=== PATIENT | male | born 1940 | race African-American/Black ===

== ENCOUNTER 2021-04-19 04:23 | Inpatient (IN) | payer OTHER ==
[~2021-04-19] VITALS: Ht 172.7 cm; Wt 87.5 kg
[2021-04-19] MEDS ORDERED: NITROGLYCERIN OINT 1GM/INCH UDPKT TD ONE (04:45)
[2021-04-19] MEDS ORDERED: FUROSEMIDE 40MG/4ML VIAL IV ONE (04:45)
[2021-04-19 05:27] LABS: BASOPHILS % 0.7 % (0.0-2.0); EOSINOPHILS % 1.3 % (0.0-5.0); HEMOGLOBIN. 10.1 g/dL (14.0-18.0); LYMPHOCYTES % 9.4 % (20.0-50.0); MEAN CORPUSCULAR VOLUME 92.3 fL (80.0-94.0); MEAN PLATELET VOLUME 8.6 fl (7.4-10.4); MONOCYTES % 7.8 % (2.0-8.0); NEUTROPHILS % 80.8 % (40.0-76.0); PLATELET 161 x1000/uL (130-400); RED BLOOD CELL COUNT 3.35 mill/uL (4.7-6.1); RED CELL DISTRIBUTION WIDTH 15.7 % (11.6-14.6)
[2021-04-19 05:34] LABS: CHLORIDE 117 mEq/L (98-107)
[2021-04-19] MEDS ORDERED: LORAZEPAM 2MG/ML CPJ IV PRN (08:00)
[2021-04-19] MEDS ORDERED: GUAIFENESIN 200MG/10ML SUGAR FREE UDC PO PRN (08:00)
[2021-04-19] MEDS ORDERED: ONDANSETRON HCL 4MG/2ML INJ IV PRN (08:00)
[2021-04-19] MEDS ORDERED: MORPHINE SULFATE 2 MG/ML CPJ (NOT FOR IM USE) IV PRN (08:00)
[2021-04-19] MEDS ORDERED: ALBUTEROL 6.7GM HFA INHALER ORI PRN (08:00)
[2021-04-19] MEDS ORDERED: DIPHENHYDRAMINE 50MG/ML VIAL IV PRN (08:00)
[2021-04-19] MEDS ORDERED: CLONIDINE 0.1MG TABLET PO PRN (08:00)
[2021-04-19] MEDS ORDERED: CEFTRIAXONE 1 G PREMIX 50 ML IV SCH (08:00)
[2021-04-19] MEDS ORDERED: MAGNESIUM/ALUMINUM HYDROXIDE/SIMETHICONE 30ML UDC PO PRN (08:00)
[2021-04-19] MEDS ORDERED: ENOXAPARIN 40MG/0.4ML SYR SUBCUT SCH (08:00)
[2021-04-19] MEDS ORDERED: DOCUSATE SODIUM 100MG CAPSULE PO PRN (08:00)
[2021-04-19] MEDS ORDERED: HYDROCODONE/ACETAMINOPHEN 5/325MG TABLET PO PRN (08:00)
[2021-04-19] MEDS ORDERED: ACETAMINOPHEN 325MG TABLET PO PRN (08:00)
[2021-04-19] MEDS ORDERED: AZITHROMYCIN 500 MG in DEXT 5% WATER 250 ML IV SCH (09:00)
[2021-04-19] MEDS: FUROSEMIDE 40MG/4ML VIAL IVP SCH (12:02)
[2021-04-19 12:09] LABS: CREATINE KINASE 125 IU/L (39-308)
[2021-04-19] MEDS ORDERED: ASPIRIN 81MG EC TABLET PO NR (13:45)
[2021-04-19 13:48] LABS: BG CARBOXYHEMOGLOBIN 0.3 % (0.5-1.5); BG DEOXYHEMOGLOBIN 3.2 % (0.0-5.0); BG HCO3 ACT 21.2 mmol/L (22.0-26.0); BG METHEMOGLOBIN 0.3 % (0.0-1.5); BG OXYGEN SATURATION 96.8 % (92.0-98.5); BG OXYHEMOGLOBIN 96.2 % (94.0-97.0); BG PCO2 35.1 mmHg (35.0-45.0); BG PH 7.399 (7.350-7.450); BG PO2 94.4 mmHg (75.0-100.0); BG SAMPLE SITE RIGHT BRACHIAL; BG TOTAL HEMOGLOBIN 11.3 g/dL (12.0-18.0); BG VENT MODE NASAL CANNULA
[2021-04-19] MEDS: SODIUM CHLORIDE 0.9% INJ 3ML FLUSH IVF SCH ×2 (14:00→15:21)
[2021-04-19 21:00] VITALS: BP 121/61
[2021-04-19] MEDS: CARVEDILOL 6.25 MG TABLET PO SCH (22:02)
[2021-04-19] MEDS: ATORVASTATIN CALCIUM 40MG TABLET PO SCH (22:02)
[2021-04-20] VITALS: BP 133/71
[2021-04-20] MEDS ORDERED: ISOS30TA91 PO (01:28)
[2021-04-20] MEDS ORDERED: CARV12.545 MT (01:28)
[2021-04-20] MEDS ORDERED: PANT40TA51 MT (01:28)
[2021-04-20] MEDS ORDERED: ATOR-2 MT (01:28)
[2021-04-20] MEDS ORDERED: COLC0.6C3 MT (01:28)
[2021-04-20 04:00] VITALS: BP 163/70
[2021-04-20] MEDS: SODIUM CHLORIDE 0.9% INJ 3ML FLUSH IVF SCH ×3 (06:13→20:42)
[2021-04-20 07:14] LABS: CHLORIDE 115 mEq/L (98-107)
[2021-04-20 07:19] LABS: BASOPHILS % 0.9 % (0.0-2.0); EOSINOPHILS % 2.7 % (0.0-5.0); HEMATOCRIT. 28.6 % (42.0-52.0); HEMOGLOBIN. 9.7 g/dL (14.0-18.0); LYMPHOCYTES % 14.8 % (20.0-50.0); MEAN CORPUSCULAR HEMOGLOBIN 30.6 pg (28.0-32.0); MEAN CORPUSCULAR VOLUME 90.1 fL (80.0-94.0); MEAN PLATELET VOLUME 8.8 fl (7.4-10.4); NEUTROPHILS % 69.6 % (40.0-76.0); PLATELET 146 x1000/uL (130-400); RED BLOOD CELL COUNT 3.17 mill/uL (4.7-6.1); RED CELL DISTRIBUTION WIDTH 15.5 % (11.6-14.6)
[2021-04-20 08:12] VITALS: BP 158/64
[2021-04-20] MEDS: CEFTRIAXONE 1,000 MG in DEXTROSE 5% WATER 50 ML IV SCH (08:23)
[2021-04-20] MEDS: ASPIRIN 81MG EC TABLET PO SCH (08:24)
[2021-04-20] MEDS: FUROSEMIDE 40MG/4ML VIAL IVP SCH (08:25)
[2021-04-20] MEDS: CARVEDILOL 6.25 MG TABLET PO SCH ×2 (08:28→20:42)
[2021-04-20] MEDS ORDERED: ENOXAPARIN 30MG/0.3ML SYR SUBCUT SCH (09:00)
[2021-04-20] MEDS: AZITHROMYCIN 500 MG in DEXT 5% WATER 250 ML IV SCH (11:14)
[2021-04-20 12:00] VITALS: BP 162/57
[2021-04-20 16:00] VITALS: BP 143/51
[2021-04-20] MEDS: ATORVASTATIN CALCIUM 40MG TABLET PO SCH (20:42)
[2021-04-20 20:49] VITALS: BP 155/76
[2021-04-21] VITALS (7 sets, daily range): BP systolic 142–154; BP diastolic 55–95
[2021-04-21] MEDS: SODIUM CHLORIDE 0.9% INJ 3ML FLUSH IVF SCH (06:04)
[2021-04-21] MEDS ORDERED: ENOXAPARIN 40MG/0.4ML SYR SUBCUT SCH (09:00)
[2021-04-21] MEDS: CEFTRIAXONE 1,000 MG in DEXTROSE 5% WATER 50 ML IV SCH (09:12)
[2021-04-21] MEDS: ASPIRIN 81MG EC TABLET PO SCH (09:12)
[2021-04-21] MEDS: CARVEDILOL 6.25 MG TABLET PO SCH (09:13)
[2021-04-21] MEDS: FUROSEMIDE 40MG/4ML VIAL IVP SCH (09:27)
[2021-04-21] MEDS: AZITHROMYCIN 500 MG in DEXT 5% WATER 250 ML IV SCH (09:31)
[2021-04-21 12:16] LABS: HEMATOCRIT. 31.2 % (42.0-52.0); HEMOGLOBIN. 10.7 g/dL (14.0-18.0); LYMPHOCYTES % 15.5 % (20.0-50.0); MEAN CORPUSCULAR HEMOGLOBIN 30.6 pg (28.0-32.0); MEAN CORPUSCULAR VOLUME 89.6 fL (80.0-94.0); MEAN PLATELET VOLUME 8.5 fl (7.4-10.4); MONOCYTES % 13.4 % (2.0-8.0); NEUTROPHILS % 66.1 % (40.0-76.0); PLATELET 182 x1000/uL (130-400); RED BLOOD CELL COUNT 3.48 mill/uL (4.7-6.1); RED CELL DISTRIBUTION WIDTH 16.1 % (11.6-14.6)
[2021-04-21] MEDS ORDERED: POTASSIUM CHLORIDE 20MEQ TABLET SR PO SCH (14:30)
[2021-04-21] MEDS ORDERED: MAGNESIUM 2 G PREMIX 50 ML IV SCH (16:00)
== END 2021-04-21 21:35 | disposition home or self-care (01) | DRG 291 ==
LOC: ER 04:29 → EDBEDREQ 06:06 → EDBEDREQSVC 06:06 → EDBEDREQTM 06:06 → 7WST 06:38 → EDBEDREQSVC 06:41 → EDBEDREQTM 06:41 → CANRESERV 07:36 → ENRESERV 07:36 → EDBEDREQSVC 08:02 → ENRESERV 19:09 → 6WST 04-20 01:54
PROVIDERS: ADMIT Internal Medicine; ATTEND Internal Medicine
PROC: 5A09357 Assistance with Respiratory Ventilation, Less than 24 Consecutive Hours, Continuous Positive Airway Pressure (ICD-10-PCS; principal; 2021-04-19)
DX: I13.0 Hypertensive heart and chronic kidney disease with heart failure and stage 1 through stage 4 chronic kidney disease, or unspecified chronic kidney disease (principal); N17.0 Acute kidney failure with tubular necrosis; J18.9 Pneumonia, unspecified organism; J96.01 Acute respiratory failure with hypoxia; I50.21 Acute systolic (congestive) heart failure; I42.9 Cardiomyopathy, unspecified; D64.9 Anemia, unspecified; E78.5 Hyperlipidemia, unspecified; N18.9 Chronic kidney disease, unspecified; N20.0 Calculus of kidney; Z20.822 Contact with and (suspected) exposure to COVID-19; R26.89 Other abnormalities of gait and mobility; I25.10 Atherosclerotic heart disease of native coronary artery without angina pectoris; Z95.5 Presence of coronary angioplasty implant and graft; Z82.49 Family history of ischemic heart disease and other diseases of the circulatory system; Z87.891 Personal history of nicotine dependence; Z95.810 Presence of automatic (implantable) cardiac defibrillator; I25.2 Old myocardial infarction; R77.8 Other specified abnormalities of plasma proteins
CPT/HCPCS: 36415; 36600; 71045; 76770; 80048; 80053; 82375; 82550; 82805; 83735; 83880; 84484; 85025; 87426; 93005; 93306; 94660; 97162; 99291; J0456; J0696; J1650; J1940; J3475; J7060; U0003; U0005